=== PATIENT | female | born 1965 | race Caucasian/White ===

== ENCOUNTER → 2018-02-08 | Outpatient (CLI) | payer OTHER ==
[2018-02-08 12:55] LABS: Basophils % (A) 0 %; Eosinophils # (A) 0.1 k/uL (0-0.7); Eosinophils % (A) 1 %; HCT 39.9 % (34.0-46.0); HGB 13.4 gm/dL (11.4-16.0); Lymphocytes # (A) 2.2 k/uL (1.0-4.8); Lymphocytes % (A) 27 %; MCH 30.9 pg (25.0-35.0); MCHC 33.7 g/dL (31.0-37.0); MCV 91.7 fL (80.0-100.0); Monocytes # (A) 0.6 k/uL (0-1.0); Monocytes % (A) 7 %; Neutrophils # (A) 5.2 k/uL (1.3-7.7); Neutrophils % (A) 63 %; Platelet Count 340 k/uL (150-450); RBC 4.35 m/uL (3.80-5.40); RDW 13.2 % (11.5-15.5); WBC 8.3 k/uL (3.8-10.6)
[2018-02-08 13:23] LABS: ALT 71 U/L (9-52); AST 46 U/L (14-36); Albumin 4.4 g/dL (3.5-5.0); Albumin/Globulin Ratio 1.6; Alkaline Phosphatase 102 U/L (38-126); Anion Gap 9 mmol/L; Blood Urea Nitrogen 12 mg/dL (7-17); Calcium 9.9 mg/dL (8.4-10.2); Carbon Dioxide 22 mmol/L (22-30); Chloride 108 mmol/L (98-107); Globulin 2.7 g/dL; Glucose 90 mg/dL (74-99); Potassium 4.8 mmol/L (3.5-5.1); Sodium 139 mmol/L (137-145); Total Bilirubin 0.5 mg/dL (0.2-1.3); Total Protein 7.1 g/dL (6.3-8.2)
[2018-02-08 13:29] LABS: Creatine Kinase MB 1.6 ng/mL (0.0-2.4); Troponin I <0.012 ng/mL (0.000-0.034)
== END | disposition home or self-care (01) ==
LOC: LABWHC1 12:34
PROVIDERS: ATTEND Nurse Practitioner Family
DX: R07.9 Chest pain, unspecified (principal); R12 Heartburn
CPT/HCPCS: 36415; 80053; 82553; 84443; 84484; 85025

== ENCOUNTER → 2018-02-11 | Outpatient (CLI) | payer OTHER ==
--- NOTE | 2018-02-11 11:08 | NM ---
EXAMINATION TYPE: NM stress cardiolite complete DATE OF EXAM: 02/11/2018 COMPARISON: NONE HISTORY: Pain TECHNIQUE: After the intravenous administration of 10 mCi Tc 99m Sestamibi - Rest images obtained 50 minutes post injection. The patient exercised using a ANA protocol and 1 minute prior to peak ex ercise was injected with 25.4 mCi Tc 99m Sestamibi - Stress images obtained 12 minutes post injection . FINDINGS: Targeted heart rate was achieved during performance of the study. Review of stress and rest SPECT sarah ges demonstrates no distinct perfusion abnormality. Gated analysis shows normal wall motion with an estimated left ventricular ejection fraction of 67 %. IMPRESSION: No scintigraphic evidence for reversible ischemia
--- NOTE | 2018-02-11 11:41 | EST ---
EXERCISE STRESS AGE: 52 SEX: F HT: 5'9" WT: 200 PROTOCOL: Cardiolite Jose Stress Test STAGE: 2 DURATION OF EXERCISE: 6:00 HEART RATE REST: 87 BLOOD PRESSURE REST: 121/81 MAXIMUM HEART RATE ACHIEVED: 146 MAXIMUM BLOOD PRESSURE: 142/80 85% MPHR: 145 100% MPHR: 170 METS: 7.1 INDICATIONS: Chest pain. CLINICAL INFORMATION: Baseline EKG shows sinus rhythm, normal axis, normal intervals. Patient exercised on Jose protocol for a total of 6 minutes achieving 7 METS, 86% of predicted maximal heart rate without chest pain or diagnostic ST-segment depression. CONCLUSIONS: 1. Average exercise tolerance. 2. Negative stress test by EKG criteria. 3. Cardiolite portion of the stress test will be reported separately. MMODL / IJN: [id number] /
== END ==
LOC: RADNMMAIN 08:07
PROVIDERS: ATTEND Family Medicine
DX: R07.89 Other chest pain (principal); Z82.49 Family history of ischemic heart disease and other diseases of the circulatory system
CPT/HCPCS: 93017; 78452; A9500

== ENCOUNTER → 2018-09-27 | Outpatient (CLI) | payer OTHER ==
--- NOTE | 2018-09-27 09:17 | US ---
EXAMINATION TYPE: US liver DATE OF EXAM: 09/27/2018 COMPARISON: NONE CLINICAL HISTORY: R74.8 Abnormal levels of other serum enzymes. abn labs, no pain EXAM MEASUREMENTS: Liver Length: 13.6 cm Gallbladder Wall: 0.2 cm CHD: 0.2 cm Right Kidney: 9.6 x 4.6 x 5.0 cm Pancreas: Tail obscured by overlying bowel gas Liver: Mildly heterogenous echotexture with slightly diminished visualization of the portal triads. T his limits evaluation for hepatic masses. Gallbladder: wnl Evidence for sonographic Nash's sign: neg CBD: Obscured by overlying bowel gas CHD: wnl Right Kidney: wnl IMPRESSION: 1. No sonographic evidence of cholelithiasis nor acute cholecystitis. 2. Very mild heterogenous echotexture of the liver most commonly related to early mild degree hepatic steatosis.
== END | disposition home or self-care (01) ==
LOC: RADUSWWP 07:58
PROVIDERS: ATTEND Family Medicine
DX: K76.0 Fatty (change of) liver, not elsewhere classified (principal)
CPT/HCPCS: 76705

== ENCOUNTER → 2018-11-19 | Outpatient (CLI) | payer OTHER ==
--- NOTE | 2018-11-23 09:24 | MM ---
Reason for exam: screening (asymptomatic). Last mammogram was performed 4 years and 11 months ago. History: Patient is postmenopausal and is nulliparous. Physical Findings: A clinical breast exam by your physician is recommended on an annual basis and results should be correlated with mammographic findings. MG 3D Screening Mammo W/Cad Bilateral CC and MLO view(s) were taken. Prior study comparison: December 26, 2013, bilateral MG screening mammo w CAD. December 24, 2012, bilateral digital screening mammo w/CAD. There are scattered fibroglandular densities. No significant changes when compared with prior studies. ASSESSMENT: Negative, BI-RAD 1 RECOMMENDATION: Routine screening mammogram of both breasts in 1 year.
== END | disposition home or self-care (01) ==
LOC: RADMAMWWP 13:59
PROVIDERS: ATTEND Family Medicine
DX: Z12.31 Encounter for screening mammogram for malignant neoplasm of breast (principal)
CPT/HCPCS: 77063; 77067

== ENCOUNTER 2018-12-08 08:39 | Day surgery (SDC) | payer OTHER ==
[2018-12-07 10:17] VITALS: BMI 28.5
[~2018-12-08 08:39] MED LIST: LACTATED RINGERS 1,000 ML IV SCH
[2018-12-08 09:32] VITALS: TEMP 97.3
[2018-12-08] MEDS ORDERED: PROPOFOL 10 MG/ML 20 ML VIAL IV ONE (10:05)
[2018-12-08 10:31] VITALS: RESP 18
[2018-12-08 10:49] VITALS: BP 116/83; PULSE 87
--- NOTE | 2018-12-08 10:55 | P.PCN ---
Date of Procedure: 12/08/18 Procedure(s) Performed: BRIEF HISTORY: Patient is a 53-year-old pleasant female scheduled for an elective colonoscopy as a part of screening for colorectal neoplasia. PROCEDURE PERFORMED: Colonoscopy. PREOPERATIVE DIAGNOSIS: Screening for colon cancer. IV sedation per Anesthesia. PROCEDURE: After informed consent was obtained, the patient, was brought into the endoscopy unit. IV sedation was administered by Anesthesia under continuous monitoring. Digital rectal examination was normal. Initially the Olympus CF-160 flexible video colonoscope was then inserted in the rectum, gradually advanced into the cecum without any difficulty. Careful examination was performed as the scope was gradually being withdrawn. Ileocecal valve and the appendiceal orifice were visualized and appeared normal. Prep was excellent. Mucosa of the cecum, ascending colon, transverse colon, descending colon, sigmoid colon, and rectum appeared normal. Retroflexion was performed in the rectum and no lesions were seen. The patient tolerated the procedure well. IMPRESSION: Normal-appearing colon from rectum to cecum with no evidence of colorectal neoplasia. RECOMMENDATIONS: Findings of this examination were discussed with the patient as well as a family. She was advised to have a repeat screening colonoscopy in 10 years.
== END 2018-12-08 11:05 | disposition home or self-care (01) ==
LOC: ORWHC2ENDO 08:39
PROVIDERS: ATTEND Internal Medicine Gastroenterology
DX: Z12.11 Encounter for screening for malignant neoplasm of colon (principal); K21.9 Gastro-esophageal reflux disease without esophagitis; F31.9 Bipolar disorder, unspecified; Z87.898 Personal history of other specified conditions; Z79.899 Other long term (current) drug therapy
CPT/HCPCS: J2704; G0121

== ENCOUNTER 2019-01-20 14:41 | Emergency (ER) | payer OTHER ==
--- NOTE | 2019-01-20 15:25 | ED ---
General Adult HPI - General Chief complaint: Psychiatric Symptoms Stated complaint: mental health Time Seen by Provider: 01/20/19 14:52 Source: patient Mode of arrival: ambulatory Limitations: no limitations - History of Present Illness Initial comments: Patient is a 53-year-old female presenting to emergency Department with a chief complaint of psychiatric evaluation. is also present in the room who states that the patient was evaluated by her therapist who informed them that she was having manic symptoms and should be taken to the ED for further evaluation. Patient reports she has not slept in the last 4 days although she did sleep at small intervals. Patient reports that she has no medical complaints. Patient denies any suicidal or homicidal thoughts or ideations. Patient reports she is not been able take her similar medication because her psychiatrist is temporarily unavailable. - Related Data Home Medications Medication Instructions Recorded Confirmed Desvenlafaxine [Pristiq ER] 100 mg PO DAILY 12/07/18 01/20/19 Disulfiram [Antabuse] 250 mg PO HS 12/07/18 01/20/19 Loratadine [Claritin] 10 mg PO BID 12/07/18 01/20/19 Mirabegron [Myrbetriq] 25 mg PO DAILY 12/07/18 01/20/19 Montelukast [Singulair] 10 mg PO HS 12/07/18 01/20/19 Omeprazole 20 mg PO DAILY 12/07/18 01/20/19 QUEtiapine [SEROquel] 50 mg PO HS 12/07/18 01/20/19 lamoTRIgine [LaMICtal] 150 mg PO HS 12/07/18 01/20/19 Cholecalciferol [Vitamin D3 (25 5,000 unit PO DAILY 01/20/19 01/20/19 Mcg = 1000 Iu)] Vitamin B Complex 1 cap PO BID 01/20/19 01/20/19 Vitamin C(Unknown Dose) 1 tab PO DAILY 01/20/19 01/20/19 Vitamin E(Unknown Dose) 1 cap PO DAILY 01/20/19 01/20/19 Allergies Allergy/AdvReac Type Severity Reaction Status Date / Time No Known Allergies Allergy Verified 01/20/19 16:23 Review of Systems ROS Statement: Those systems with pertinent positive or pertinent negative responses have been documented in the HPI. ROS Other: All systems not noted in ROS Statement are negative. Past Medical History Past Medical History: Asthma, GERD/Reflux, Hyperlipidemia, Hypertension Additional Past Medical History / Comment(s): used to take BP med.-no longer needed History of Any Multi-Drug Resistant Organisms: None Reported Past Surgical History: No Surgical Hx Reported Additional Past Anesthesia/Blood Transfusion Reaction / Comment(s): has never had anesthesia, no family problems with Past Psychological History: Bipolar, Depression Smoking Status: Never smoker Past Alcohol Use History: None Reported Past Drug Use History: None Reported - Past Family History Mother Family Medical History: No Reported History General Exam Limitations: no limitations General appearance: alert, in no apparent distress Head exam: Present: atraumatic, normocephalic, normal inspection Eye exam: Present: normal appearance, EOMI Pupils: Present: normal accommodation ENT exam: Present: normal exam, mucous membranes moist, normal external ear exam Neck exam: Present: normal inspection, full ROM Respiratory exam: Present: normal lung sounds bilaterally Cardiovascular Exam: Present: regular rate, normal rhythm, normal heart sounds Extremities exam: Present: normal inspection, full ROM Back exam: Present: normal inspection, full ROM Neurological exam: Present: alert, oriented X3 Psychiatric exam: Present: normal affect, manic Skin exam: Present: warm, intact, normal color Course Vital Signs 01/20/19 14:45 Temperature 98.4 F Pulse Rate 104 H Respiratory 20 Rate Blood Pressure 176/111 O2 Sat by Pulse 98 Oximetry Medical Decision Making - Medical Decision Making Patient is a 53-year-old female with history of bipolar disease presenting to emergency Department with a chief complaint of psychiatric evaluation. Her states that they spoke with their therapist who said the patient was manic and referred him to the ED. On initial encounter with the patient does appear to have manic symptoms and is complaining of difficulty sleeping although she has been sleeping for the past several days. Patient was cleared medically. Patient had no medical complaints. EPS notified and evaluated. She is going to be transferred to another facility for psychiatric management. Case discussed with . - Lab Data Lab Results 01/20/19 Range/Units 15:37 Urine Opiates Screen Not Detected (NotDetected) Ur Oxycodone Screen Not Detected (NotDetected) Urine Methadone Screen Not Detected (NotDetected) Ur Propoxyphene Screen Not Detected (NotDetected) Ur Barbiturates Screen Not Detected (NotDetected) U Tricyclic Antidepress Not Detected (NotDetected) Ur Phencyclidine Scrn Not Detected (NotDetected) Ur Amphetamines Screen Not Detected (NotDetected) U Methamphetamines Scrn Not Detected (NotDetected) U Benzodiazepines Scrn Not Detected (NotDetected) Urine Cocaine Screen Not Detected (NotDetected) U Marijuana (THC) Screen Not Detected (NotDetected) Disposition Clinical Impression: Manic behavior Disposition: TRANSFER TO PSYCH HOSP/UNIT Condition: Stable Instructions (If sedation given, give patient instructions): Bipolar Disorder (DC) Additional Instructions: Patient will be transferred. Is patient prescribed a controlled substance at d/c from ED?: No Referrals: Nando Ashraf MD [Primary Care Provider] - 1-2 days Time of Disposition: 18:01
[2019-01-20 16:03] LABS: Cocaine Screen,Urine Not Detected (NotDetected); Phencyclidine Screen,Urine Not Detected (NotDetected); Urn Cannabinoid Scrn Not Detected (NotDetected)
[2019-01-20 16:04] LABS: Amphetamine Screen,Urine Not Detected (NotDetected); Barbiturate Screen,Urine Not Detected (NotDetected); Benzodiazepines Screen,Urine Not Detected (NotDetected); Methadone Screen, Urine Not Detected (NotDetected); Opiate Screen,Urine Not Detected (NotDetected); Oxycodone Screen, Urine Not Detected (NotDetected); Tricyclic Antidepressant,Urine Not Detected (NotDetected)
[2019-01-20] MEDS ORDERED: lamoTRIgine 100 MG TAB PO STA (20:01)
[2019-01-20] MEDS ORDERED: MONTELUKAST 10 MG TAB PO STA (20:02)
[2019-01-20] MEDS ORDERED: QUEtiapine 50 MG TAB PO STA (20:02)
[2019-01-21 10:22] VITALS: BP 146/85; PULSE 101; RESP 20; TEMP 97.9
== END 2019-01-21 10:22 ==
LOC: EC 14:41
DX: F31.9 Bipolar disorder, unspecified (principal); G47.8 Other sleep disorders; J45.909 Unspecified asthma, uncomplicated; K21.9 Gastro-esophageal reflux disease without esophagitis; Z79.899 Other long term (current) drug therapy
CPT/HCPCS: 80306; 82075; 99285

== ENCOUNTER → 2020-03-15 | Outpatient (CLI) | payer OTHER ==
--- NOTE | 2020-03-19 11:12 | MM ---
Reason for exam: screening (asymptomatic). Last mammogram was performed 1 year and 4 months ago. History: Patient is postmenopausal and is nulliparous. Physical Findings: A clinical breast exam by your physician is recommended on an annual basis and results should be correlated with mammographic findings. MG 3D Screening Mammo W/Cad Bilateral CC and MLO view(s) were taken. Prior study comparison: November 19, 2018, bilateral MG 3d screening mammo w/cad. December 26, 2013, bilateral MG screening mammo w CAD. There are scattered fibroglandular densities. No significant changes when compared with prior studies. ASSESSMENT: Benign, BI-RAD 2 RECOMMENDATION: Routine screening mammogram of both breasts in 1 year.
== END | disposition home or self-care (01) ==
LOC: RADMAMWWP 09:20
PROVIDERS: ATTEND Physician Assistant
DX: Z12.31 Encounter for screening mammogram for malignant neoplasm of breast (principal)
CPT/HCPCS: 77063; 77067

== ENCOUNTER → 2022-07-08 | Outpatient (CLI) | payer OTHER ==
--- NOTE | 2022-07-08 10:03 | CA ---
Exercise Stress Test Report Name: Casie Moore Exam Date: 07/08/2022 09:04 Exam Location: [place] Stress Ht (in): 68 Wt (lb): 183 BSA: 1.97 Ordering Phys: Nadno Ashraf MD Referring Phys: Zaira Almazan PAC Technologist: Rodrigo Scott Age: 57 Gender: F : 1965 Procedure CPT: Indications: R06.09 ICD-10 Codes: Patient History: CHEST PAIN, DIFFICULTY IN BREATHING, HTN, ELEVATED CHOLESTEROL LEVELS, FAMILY HX OF HEART DISEASE, ASTHMA Medications: LISINOPRIL, OMEPRAZOLE, XANAX, MONTELUKAST, ATORVASTATIN, CLARITIN, NALTREXONE, VITAMIN D, VIT B COMPLEX Meds past 24 hrs: Pretest Chest Pain: STRESS TEST Jose Protocol Exercise Duration (min:sec): 03:[address] Depressions (mm): Angina Score: Murray Score: Resting HR (bpm): 120 Peak HR (bpm): 145 Resting BP (mmHg): 128 / 83 Peak BP (mmHg): 158 / 64 MPHR: 165 Target HR: 140 % MPHR: 88 METS: 4.7 Total Dose: Peak Dose: Atropine: Double Product: 25045 BP Response: Stress Termination: TARGET HR/FATIGUE Stress Symptoms: DIFFICULTY IN BREATHING Stress Summary: ECG ANALYSIS Resting ECG: Stress ECG: CONCLUSIONS Patient walked on a standard Jose protocol for a total duration of 3 minutes and achieved a maximum heart rate of 145 bpm which is more than 85% of predicted maximal. She developed fatigue and shortness of breath. Exercise capacity was a limited. EKG did not reveal any significant ST segment changes to indicate ischemia. Patient had shortness of breath but no angina. There was no arrhythmia. This is a negative stress test with limited x-rays capacity without evidence of ischemia. Patient has poor conditioning Dr. Baljit Campbell MD (Electronically Signed) Final Date: 08 July 2022 10:02
== END | disposition home or self-care (01) ==
LOC: RADNMMAIN 08:28
PROVIDERS: ATTEND Family Medicine
DX: R06.09 Other forms of dyspnea (principal)
CPT/HCPCS: 93017

== ENCOUNTER → 2022-07-15 | Outpatient (CLI) | payer OTHER ==
--- NOTE | 2022-07-15 14:26 | MM ---
Reason for Exam: Screening (asymptomatic). Last mammogram was performed 2 year(s) and 4 month(s) ago. Patient History: Menarche at age 14. Patient has no children. Postmenopausal. Risk Values: Monica 5 year model risk: 1.3%. NCI Lifetime model risk: 9.1%. Prior Study Comparison: 12/26/2013 Bilateral Screening Mammogram, [facility]. 11/19/2018 Bilateral Screening Mammogram, [facility]. 03/15/2020 Bilateral Screening Mammogram, [facility]. Tissue Density: There are scattered fibroglandular densities. Findings: Analyzed By CAD. There is no suspicious group of microcalcifications or new suspicious mass in either breast. Overall Assessment: Negative, BI-RAD 1 Management: Screening Mammogram of both breasts in 1 year. A clinical breast exam by your physician is recommended on an annual basis and results should be correlated with mammographic findings. [facility] will attempt to contact patient to return for supplemental views and ultrasound if indicated. Electronically signed and approved by: Chad Zeng DO
== END | disposition home or self-care (01) ==
LOC: RADMAMWWP 07-14 14:58
PROVIDERS: ATTEND Family Medicine
DX: Z12.31 Encounter for screening mammogram for malignant neoplasm of breast (principal); Z78.0 Asymptomatic menopausal state
CPT/HCPCS: 77067

== ENCOUNTER → 2023-10-20 | Outpatient (CLI) | payer BC ==
--- NOTE | 2023-10-25 13:33 | MM ---
Reason for Exam: Screening (asymptomatic). Last mammogram was performed 1 year(s) and 3 month(s) ago. Patient History: Menarche at age 14. Patient has no children. Postmenopausal. Risk Values: Monica 5 year model risk: 1.4%. NCI Lifetime model risk: 8.9%. Prior Study Comparison: 11/19/2018 Bilateral Screening Mammogram, [facility]. 03/15/2020 Bilateral Screening Mammogram, [facility]. 07/15/2022 Bilateral MG screening mammo w CAD, [facility]. Tissue Density: There are scattered areas of fibroglandular density. Findings: Analyzed By CAD. The pattern is symmetrical. There is a lobular density measuring approximately 0.6 cm located 6 cm from the nipple within the mid left breast. This is likely lateral but not well visualized on the craniocaudal view. Additional workup is recommended. Right breast:No suspicious groups of microcalcifications, spiculated or lobular masses, architectural distortion or other secondary signs of malignancy are mammographically apparent. Overall Assessment: Incomplete: need additional imaging evaluation, BI-RAD 0 Management: Diagnostic Mammogram of the left breast. Diagnostic Breast Ultrasound of the left breast. A negative mammogram report should not preclude additional follow up of suspicious palpable abnormalities. Patient should continue monthly self breast exam. A clinical breast exam by your physician is recommended on an annual basis and results should be correlated with mammographic findings. Note on Monica scores and lifetime risk: 1. A Monica score greater than 3% is considered moderate risk. If this is the case, consider specialist referral to assess eligibility for a risk reducing agent. 2. If overall lifetime risk for the development of breast cancer is 20% or higher, the patient may qualify for future screening with alternating mammogram and breast MRI. Electronically signed and approved by: Isidro Finnegan D.O. Radiologis
== END | disposition home or self-care (01) ==
LOC: RADMAMWWP 07:41
PROVIDERS: ATTEND Family Medicine
DX: Z12.31 Encounter for screening mammogram for malignant neoplasm of breast (principal); R92.323 Mammographic fibroglandular density, bilateral breasts; Z78.0 Asymptomatic menopausal state
CPT/HCPCS: 77067

== ENCOUNTER → 2023-10-30 | Outpatient (CLI) | payer BC ==
--- NOTE | 2023-10-30 13:58 | MM ---
Reason for Exam: Additional evaluation requested from abnormal screening. Last screening mammogram was performed less than 1 month ago. Patient History: Menarche at age 14. Patient has no children. Postmenopausal. Risk Values: Monica 5 year model risk: 1.4%. NCI Lifetime model risk: 8.9%. Prior Study Comparison: 03/15/2020 Bilateral Screening Mammogram, [facility]. 07/15/2022 Bilateral MG screening mammo w CAD, [facility]. 10/20/2023 Bilateral MG screening mammo w CAD, [facility]. Tissue Density: Left: The breasts are heterogeneously dense, which may obscure small masses. Findings: Analyzed By CAD. 5 mm nodular density 5.5 cm from the nipple at the approximate 9:00 position. Ultrasound is recommended. Overall Assessment: Incomplete: need additional imaging evaluation, BI-RAD 0 Management: Diagnostic Breast Ultrasound of the left breast. . Results were given to the patient verbally at the time of exam. Patient should continue monthly self-breast exams. A clinical breast exam by your physician is recommended on an annual basis. This exam should not preclude additional follow-up of suspicious palpable abnormalities. Note on Monica scores and lifetime risk: 1. A Monica score greater than 3% is considered moderate risk. If this is the case, consider specialist referral to assess eligibility for a risk reducing agent. 2. If overall lifetime risk for the development of breast cancer is 20% or higher, the patient may qualify for future screening with alternating mammogram and breast MRI. Electronically signed and approved by: French Simmons M.D. Radiologis
--- NOTE | 2023-10-30 14:14 | USB ---
Reason for Exam: Additional evaluation requested from abnormal screening. Patient History: Menarche at age 14. Patient has no children. Postmenopausal. Risk Values: Monica 5 year model risk: 1.4%. NCI Lifetime model risk: 8.9%. Technique: Method: Targeted. Prior Study Comparison: 03/15/2020 Bilateral Screening Mammogram, [facility]. 07/15/2022 Bilateral MG screening mammo w CAD, [facility]. 10/20/2023 Bilateral MG screening mammo w CAD, [facility]. Findings: The lateral section of the breast of the left breast, the axilla of the left breast and the retroareolar of the left breast were scanned. At the left 3:00 location 5 cm from the 6 x 3 x 9 mm hypoechoic lesion at the 3:00 location. Mammographic report incorrectly stated 9:00. The lesion is in fact at 3:00. Overall Assessment: Suspicious, BI-RAD 4 Management: Ultrasound Core Biopsy of the left breast. A clinical breast exam by your physician is recommended on an annual basis and results should be correlated with mammographic findings. This exam should not preclude additional follow-up of suspicious palpable abnormalities. Results were given to the patient verbally at the time of exam. Electronically signed and approved by: French Simmons M.D. Radiologis
== END | disposition home or self-care (01) ==
LOC: RADMAMWWP 13:32
PROVIDERS: ATTEND Family Medicine
DX: R92.332 Mammographic heterogeneous density, left breast (principal); R92.8 Other abnormal and inconclusive findings on diagnostic imaging of breast; Z78.0 Asymptomatic menopausal state
CPT/HCPCS: 77061; 77065

== ENCOUNTER → 2023-12-02 | Day surgery (SDC) | payer BC ==
--- NOTE | 2023-12-15 11:22 | MM ---
Reason for Exam: Post Procedure Mammogram. Last screening mammogram was performed 1 month(s) ago. Patient History: Menarche at age 14. Patient has no children. Postmenopausal. Risk Values: Monica 5 year model risk: 1.4%. NCI Lifetime model risk: 8.9%. Prior Study Comparison: 07/15/2022 Bilateral MG screening mammo w CAD, [facility]. 10/20/2023 Bilateral MG screening mammo w CAD, [facility]. 10/30/2023 Left MG 3D work up w/cad LT, [facility]. Tissue Density: Left: There are scattered areas of fibroglandular density. Pathology Description: Location: 3 o'clock. Marker Left Behind. Needle Type: Celero Cores: 4 Skin Nicks: 1 The procedure of ultrasound guided core biopsy was explained to the patient. Benefits, alternatives, and risks were discussed. An informed consent was then obtained. The vague 8 mm hypoechoic area is identified at the 3:00 position, 5 cm from the nipple and targeted for biopsy. The patient was placed in supine positioning for imaging and for the procedure. The overlying skin was prepped and draped in usual sterile fashion. Lidocaine was used as anesthetic into the skin and subcutaneous tissue up to area of concern in the 3:00 left breast. Under ultrasound guidance, a 13-gauge vacuum-assisted mammotome Elite biopsy gun device was used to obtain 4 core samples. Following this, a HydroMark coil clip was left at the site of biopsy. The patient tolerated the procedure well without any immediate complication. The patient was kept in the radiology department for short stay after the procedure and then discharged home in stable condition. Postprocedure mammogram: The patient was transferred to mammography for physician ordered post procedure mammogram for clip placement verification. Post procedure mammogram shows clip at the site of initially detected mammographic asymmetry. IMPRESSION: Successful, uncomplicated ultrasound guided core biopsy of the mammographic correlate in the 3:00 left breast; full pathology results to follow. Pathology Results: Result: Benign, Fibroadenoma. Pathology and radiology were reviewed. Findings are concordant. LEFT BREAST, 3:00 POSITION, ULTRASOUND GUIDED CORE BIOPSY: Hypocellular and sclerotic mammary tissue, compatible with fibroadenoma. Usual ductal hyperplasia. Correlation with imaging studies suggested, as indicated. Overall Assessment: Benign Assessment: MG diagnostic mammo LT wo CAD. - Left: Benign, BI-RAD 2. Management: Diagnostic Mammogram of the left breast in 6 months. Electronically signed and approved by: Ann Coello M.D. Radiologist
== END ==
LOC: RADUSWWP 12:47
PROVIDERS: ATTEND Family Medicine
DX: R92.8 Other abnormal and inconclusive findings on diagnostic imaging of breast (principal)
CPT/HCPCS: 77065; 88305